=== PATIENT | female | born 1970 | race Hispanic/Latino ===

== ENCOUNTER 2024-04-29 21:28 | Emergency (ER) | payer BC ==
[~2024-04-29] VITALS: Ht 175.3 cm; Wt 73.0 kg
[~2024-04-29 21:28] MED LIST: DICYCLOMINE HCL10 MG PO; DICYCLOMINE HCL20 MG PO; PANTOPRAZOLE SO40 MG PO
[2024-04-29 21:53] VITALS: TEMP 98
[2024-04-29] MEDS: SODIUM CHLORIDE 0.9% 1000ML 1,000 ML IV ONE (22:11)
[2024-04-29] MEDS: ONDANSETRON HCL INJ 2MG/ML 2ML 2 MG/ML VIAL IV STA (22:11)
[2024-04-29 22:23] LABS: BASOPHILS # (AUTO) 0.1 (0.0-0.1); BASOPHILS % 0.4 % (0.0-1.0); EOSINOPHILS # (AUTO) 0.9 (0.0-0.4); EOSINOPHILS % 4.1 % (0.0-6.0); HEMATOCRIT 26.3 % (34.2-44.1); HEMOGLOBIN 8.9 g/dL (12.0-16.0); LYMPHOCYTES # (AUTO) 3.7 (1.0-3.2); LYMPHOCYTES % 17.4 % (18.0-39.1); MEAN CORPUSCULAR HEMOGLOBIN 29.7 pg (28-32); MEAN CORPUSCULAR HGB CONC 33.8 g/dL (31-35); MEAN CORPUSCULAR VOLUME 87.7 fL (81-99); MONOCYTES # (AUTO) 2.9 (0.2-0.8); MONOCYTES % 13.5 % (4.4-11.3); NEUTROPHILS % 61.2 % (38.7-80.0); PLATELET COUNT 407 x10e3/uL (140-360); RED CELL DISTRIBUTION WIDTH 12.8 % (11.7-14.4); WHITE BLOOD COUNT 21.16 x10e3/uL (4.8-10.8)
[2024-04-29] MEDS: KETOROLAC TROMETHAMINE 30 MG/ML VIAL IV STA (22:26)
[2024-04-29 23:10] LABS: BILIRUBIN,URINE NEGATIVE (NEGATIVE); CLARITY,URINE CLEAR (CLEAR); COLOR,URINE YELLOW (YELLOW); GLUCOSE, URINE NEGATIVE (NEGATIVE); KETONES,URINE TRACE (NEGATIVE); LEUKOCYTE ESTERASE ,URINE SMALL (NEGATIVE); NITRITE,URINE NEGATIVE (NEGATIVE); PH,URINE 6 (5 - 7); PROTEIN,URINE DIPSTICK NEGATIVE (NEGATIVE); URINE UROBILINOGEN 0.2 mg/dL (0.2 - 1)
[2024-04-29 23:46] LABS: BACTERIA,URINE MANY /HPF; EPITHELIAL CELLS,URINE MODERATE /LPF
[2024-04-29 23:56] LABS: ALBUMIN 2.8 g/dL (3.5-5.0); ALBUMIN/GLOBULIN RATIO 0.7 (0.8-2.0); ANION GAP 15.9 mmol/L (8-16); BILIRUBIN,TOTAL 0.5 mg/dL (0.2-1.2); CALCIUM 8.6 mg/dL (8.4-10.2); CREATININE, SERUM 0.79 mg/dL (0.57-1.11); TOTAL PROTEIN 7.1 g/dL (6.5-8.1)
[2024-04-29 23:57] LABS: POTASSIUM 2.9 mmol/L (3.5-5.1)
[2024-04-30] MEDS ORDERED: IOPAMIDOL 370 MG/ML 100 ML INFUS..BTL INJ ONE
[2024-04-30 01:32] VITALS: PULSE 86; RESP 17
[2024-04-30] MEDS: SODIUM CHLORIDE 0.9% 1000ML 1,000 ML IV ONE (01:34)
[2024-04-30] MEDS ORDERED: METRONIDAZOLE 500MG/NS 100ML 100 ML IV SCH (02:00)
[2024-04-30] MEDS ORDERED: KCL 20MEQ/.9 SOD CHL 1,000 ML IV ONE (02:00)
[2024-04-30] MEDS ORDERED: Morphine 2mg Syringe 2 MG/ML SYR IV PRN (02:00)
[2024-04-30] MEDS ORDERED: ONDANSETRON HCL INJ 2MG/ML 2ML 2 MG/ML VIAL IV PRN (02:00)
[2024-04-30] MEDS: POTASSIUM CHLORIDE 20 MEQ TAB CR PO STA (02:05)
[2024-04-30] MEDS ORDERED: ONDANSETRON ODT4 MG SL (02:09)
[2024-04-30] MEDS ORDERED: METRONIDAZOLE500 MG PO (02:09)
[2024-04-30] MEDS ORDERED: CIPRO500 MG PO (02:09)
[2024-04-30 02:21] VITALS: BP 104/63; PULSE 76; RESP 13; TEMP 98; O2SAT 100
== END 2024-04-30 02:23 | disposition home or self-care (01) ==
LOC: ER 21:35 → ERHOLD 04-30 01:57 → UNDOADMOB 04-30 01:57 → ER 04-30 02:23
DX: A09 Infectious gastroenteritis and colitis, unspecified (principal); E87.6 Hypokalemia; D72.829 Elevated white blood cell count, unspecified; D64.9 Anemia, unspecified; Z87.19 Personal history of other diseases of the digestive system
CPT/HCPCS: 36415; 74177; 80053; 81001; 83690; 85025; 99284; J1885; J2405; J2470; J7030; Q9967